=== PATIENT | male | born 1955 | race African-American/Black ===

== ENCOUNTER → 2016-11-06 | Outpatient (CLI) | payer MEDICARE, OTHER ==
--- NOTE | 2016-11-06 13:25 | DRAGON STRESS TEST REPORT ---
EXERCISE TREADMILL TEST. DATE OF PROCEDURE: October 27, 2016 INDICATION: Bradycardia Coronary risk factors: Hypertension, smoking, dyslipidemia Resting EKG: Sinus rhythm, no baseline ST segment changes. Stress EKG: No significant changes noted with with exercise treadmill. Reason for termination: Dyspnea and fatigue. PROCEDURE REPORT: Baseline heart rate: 50 beats per minute with blood pressure of 146/99. Patient had no significant complaints at baseline. Patient was exercised on a standard Александр protocol. Patient exercised for total of 9 minutes and 39 seconds. Exercise was stopped because of fatigue and shortness of breath. Patient denied any chest arm or neck discomfort during the exercise, at peak exercise or in recovery. If automatic blood pressure recorded and if felt not accurate manual blood pressure then were recorded at appropriate intervals. Peak heart rate: 144 bpm, 89 of predicted maximum. Peak blood pressure: 193/107 mmHg. Double product: 25 kcal Exercise EKG: Showed some baseline artifact during exercise and 1.[address] segment depression noted mainly in lateral chest leads and inferior leads CONCLUSIONS: Electrocardiographically positive stress test. These changes however resolved very quickly in recovery raising possibility of this being false-positive changes. Good exercise tolerance. RECOMMENDATIONS: 1. Recommend nuclear stress test or stress echocardiogram. This is in view of positive ST segment depression with exercise. Aggressive risk factor modification, medical therapy. Consider cardiology consultation if clinically indicated. Joana Hodge M.D., [employer] product planner, Board certified in cardiovascular diseases, Nuclear cardiology, Echocardiography Cardiac CT and cardiac MRI Ph. [phone] Ph. [phone] [facility]
== END ==
LOC: SP 09:12
PROVIDERS: ATTEND Internal Medicine Geriatric Medicine
DX: R00.1 Bradycardia, unspecified (principal); I10 Essential (primary) hypertension; E78.2 Mixed hyperlipidemia
CPT/HCPCS: 93017

== ENCOUNTER → 2017-02-04 | Outpatient (CLI) | payer MEDICARE, OTHER ==
[~2017-02-04] MED LIST: REGADENOSON INJ 0.4 MG/5 ML DISP.SYRIN IV ONE
--- NOTE | 2017-02-07 14:01 | DRAGON STRESS TEST REPORT ---
Intravenous Lexiscan Cardiolite stress test using single photon emmision computerized tomography. Date of procedure: 02/04/2017. Ordering Provider: Dr. Spencer. Patient's status: Out Patient Indication: Abnormal EKG treadmill stress test. Coronary risk factors: Age, and family history of coronary artery disease. Resting EKG: Sinus bradycardia. Within normal limits Stress EKG:[ No changes of ischemia. The patient had no chest pain or discomfort, and there were no arrhythmias seen. Reason for termination: Protocol. Conclusions: Normal EKG and hemodynamic response to IV Lexiscan. Nuclear data: At rest the patient was given 12.89 millicuries of technetium 99m sestamibi injected intravenously. As per protocol rest non gated SPECT images were obtained. Subsequently the patient was given intravenous Lexiscan at a dose of 0.4 mg in 5 mL intravenously, followed by flush with normal saline. Subsequently the stress dose of 36.7 millicuries of technetium 99m sestamibi was injected intravenously. As per protocol stress gated images were obtained. Nuclear interpretation: Review of images showed that all segments of the myocardium had normal perfusion at rest, and normal perfusion post stress with IV Lexiscan. All segments of the myocardium had normal motion, contraction, and thickening by gated study. T. I D. ratio was normal at 0.97. Computer read rest, and stress left ventricular ejection fraction were 56 %, and 60 %, respectively. Conclusion: 1. There is no scintigraphic evidence of Lexiscan induced myocardial ischemia. 2. There is no scintigraphic evidence of myocardial infarction/scar. Recommendations: Aggressive risk factor modification, and treating the underlying co- morbidities. MTDD
== END ==
LOC: RAD 08:21
PROVIDERS: ATTEND Internal Medicine Geriatric Medicine
DX: R00.1 Bradycardia, unspecified (principal)
CPT/HCPCS: 93017; 78452; A9500; J2785; Q9969